=== PATIENT | female | born 1985 | race Caucasian/White ===

== ENCOUNTER 2019-07-08 01:31 | Inpatient (IN) | payer SELFPAY ==
[~2019-07-08] VITALS: Ht 149.9 cm; Wt 99.8 kg
--- NOTE | 2019-07-08 01:40 | NUR ---
TO BED 5 AMBULATORY "GENERALIZED BODY SWELLING, I HAVE HEART PROBLEMS". PT AAOX4 NO ACUTE DISTRESS NOTED, RESP EVEN AND UNLABORED. PLACE PT ON CARDIA MONTORING, CONTINUOUS POX. ER MD AT BEDSIDE TO EVAL PT WITH ORDERS RECEVED. WILL CARRY OUT ORDERS.
[2019-07-08 02:36] LABS: BASOPHILS % (AUTO) 0.2 % (0.0-2.0); EOSINOPHILS % (AUTO) 0.8 % (0.0-6.0); HEMATOCRIT 39 % (33-45); HEMOGLOBIN 13.5 g/dL (11.5-14.8); LYMPHOCYTES # (AUTO) 2.6 /CMM (0.8-4.8); LYMPHOCYTES % (AUTO) 18.8 % (20.0-44.0); MEAN CORPUSCULAR HGB CONC 34 g/dl (31.0-36.0); MEAN CORPUSCULAR VOLUME 84 fL (82-100); MONOCYTES # (AUTO) 0.9 /CMM (0.1-1.30); MONOCYTES % (AUTO) 6.3 % (2.0-12.0); NEUTROPHILS # (AUTO) 10.3 /CMM (1.8-8.9); NEUTROPHILS % (AUTO) 73.9 % (43.0-81.0); PLATELET COUNT (AUTO) 438 /CMM (150-450); RED BLOOD CELL COUNT(AUTO) 4.71 MIL/uL (4.0-5.2); WHITE BLOOD COUNT (AUTO) 13.9 K/uL (4.3-11.0)
--- NOTE | 2019-07-08 02:36 | NUR ---
Ken mares in [facility] - 07/08/19 at 0237 by LUIS BIB SELF C/O "GENERALIZED BODY SWELLING, I HAVE HEART PROBLEMS"
[2019-07-08 02:43] LABS: CALCIUM, SERUM 9.1 mg/dL (8.5-10.1); CARBON DIOXIDE 25 mmol/L (21-32); CHLORIDE 103 mmol/L (98-107); CREATININE 0.8 mg/dL (0.6-1.3); GLUCOSE 103 mg/dL (74-106); POTASSIUM 3.3 mmol/L (3.5-5.1); SODIUM SERUM 140 mmol/L (136-145); UREA NITROGEN, BLOOD 11 mg/dL (7-18)
[2019-07-08 02:57] LABS: THYROID STIMULATING HORMONE 3.063 uIU/mL (0.358-3.74)
--- NOTE | 2019-07-08 03:57 | NUR ---
PT BROTHER IS A PA. PHONE NUMBER TO TALK TO HIM IS [phone]
--- NOTE | 2019-07-08 04:55 | NUR ---
PT ASSIGNED TO ROOM 321-2
[2019-07-08] MEDS ORDERED: ONDANSETRON HCL/PF 4 MG/2 ML VIAL IVP PRN (05:30)
[2019-07-08] MEDS ORDERED: ZOLPIDEM TARTRATE 5 MG TABLET PO PRN (05:30)
[2019-07-08] MEDS ORDERED: ACETAMINOPHEN 325 MG TABLET PO PRN (05:30)
[2019-07-08] MEDS ORDERED: MAG HYDROX/AL HYDROX/SIMETH 30 ML UDC PO PRN (05:30)
[2019-07-08] MEDS ORDERED: Z GUARD REMEDY 2 OZ OINT TP PRN (05:30)
[2019-07-08] MEDS ORDERED: MAGNESIUM HYDROXIDE 30 ML UDC PO PRN (05:30)
[2019-07-08] MEDS ORDERED: HYDROCODONE/APAP 5/325MG 1 EACH TABLET PO PRN (05:30)
--- NOTE | 2019-07-08 05:40 | NUR ---
interior mechanic notes Received report from ER nurse ADAM Patel.
--- NOTE | 2019-07-08 06:15 | NUR ---
RECEIVED ORDER FOR EKG FOR 0524. PT ABSENT FROM UNIT. ATTEMPTED AGAIN AT 0615 PT STILL ABSENT FROM UNIT. WILL ENDORSE TO DAY SHIFT.
--- NOTE | 2019-07-08 06:20 | NUR ---
PT TRANSPORTED TO [facility] VIA ACLS PROTOCOL
[2019-07-08 06:24] VITALS: BP 135/92
--- NOTE | 2019-07-08 06:30 | NUR ---
ship construction teacherfront office agent notes Received Pt from ER nurse ADAM Patel . Pt arrived at the unit with a gurney thru ACLS protocol. Pt is a 34 Y O female with a diagnose of CHF by Dr. More. Pt is alert and oriented x4. Respiration is normal. NO SOB. No nausea or vomiting. Pt denies any pain or discomfort at this time. monitor and storage bin tender showed sinus tachy 111 bpm. IV sites at RAC # 18 is clean, intact, patent and SL. Initial assessment is done. All belonging was checked by EV Morris and handed to morning nurse ADAM Cristina to continue the process. ADAM Cristina will continue with the admission process. Safety precautions is maintained. Bed at low position, brakes locked, side rails upX2 and call light is within reach. Will endorse to morning nurse ADAM Cristina.
[2019-07-08 08:00] VITALS: BP 124/62
--- NOTE | 2019-07-08 08:30 | NUR ---
RN OPENING NOTES PT AWAKE AND RESTING IN BED. PER PATIENT COMPLAINING OF INCREASING LEG SWELLING. PT TELE MONITORED NSR RATE 90S. PT HAS RIGHT AC #18 INTACT AND PATENT. SAFETY PRECAUTIONS IN PLACE, BED IN LOWEST LOCKED POSITION, X2 SIDE RAILS UP AND CALL LIGHT WITHIN REACH. WILL CONTINUE TO MONITOR.
[2019-07-08] MEDS ORDERED: POTASSIUM CHLORIDE 20 MEQ TAB.PRT.SR PO SCH (09:30)
[2019-07-08 10:04] LABS: MAGNESIUM 1.9 mg/dL (1.8-2.4)
[2019-07-08 12:13] LABS: ALANINE AMINOTRANSFERASE 18 U/L (12-78); ALBUMIN 3.4 g/dL (3.4-5.0); ALKALINE PHOSPHATASE 51 U/L (46-116); ASPARTATE AMINOTRANSFERASE 12 U/L (15-37); BILIRUBIN,TOTAL 0.5 mg/dL (0.2-1.0); CALCIUM, SERUM 8.6 mg/dL (8.5-10.1); CARBON DIOXIDE 23 mmol/L (21-32); CHLORIDE 105 mmol/L (98-107); CREATININE 0.6 mg/dL (0.6-1.3); GLUCOSE 100 mg/dL (74-106); POTASSIUM 3.7 mmol/L (3.5-5.1); SODIUM SERUM 140 mmol/L (136-145); TOTAL PROTEIN, SERUM 7.1 g/dL (6.4-8.2); UREA NITROGEN, BLOOD 8 mg/dL (7-18)
[2019-07-08 15:25] LABS: THYROID STIMULATING HORMONE 1.971 uIU/mL (0.358-3.74)
[2019-07-08 15:55] LABS: APPEARANCE,URINE CLEAR (CLEAR); BILIRUBIN,URINE NEGATIVE (NEGATIVE); BLOOD, URINE TRACE Ery/uL (NEGATIVE); COLOR,URINE DARK YELLO (YELLOW); KETONES,URINE 1+ (NEGATIVE); LEUKOCYTE ESTERASE ,URINE NEGATIVE (NEGATIVE); NITRITE, URINE NEGATIVE (NEGATIVE); PROTEIN,URINE NEGATIVE (NEGATIVE); UGLUCOSE NEGATIVE (NEGATIVE); UROBILINOGEN,URINE 0.2 EU/dL (0.2)
[2019-07-08 16:00] VITALS: BP 115/75
[2019-07-08 16:09] LABS: BACTERIA,URINE Few /HPF (None Seen); SQUAMOUS EPITHELIAL CELL,UR Few /HPF (None Seen); WBC,URINE 0-2 /HPF (0-3)
--- NOTE | 2019-07-08 19:42 | NUR ---
RN CLOSING NOTES RECEIVED ORDER FROM DR BETH FALCON TO DISCHARGE PATIENT HOME. PT WILL FOLLOW UP WITH PRIMARY CARE PHYSICIAN WITHIN 1-2 WEEKS. PT WILL RETURN TO ER IF SYMPTOMS WORSEN. WILL ENDORSE TO SHOE CLERK NURSE.
--- NOTE | 2019-07-08 19:45 | NUR ---
RN NOTES RECEIVED PATIENT AWAKE ALERT ORIENTEDX4, DENIES ANY PAIN OR DISCOMFORT, PREPARING FOR DISCHARGE, IV ACCESS ON HER RIGHT AC G#18 INTACT AND PATENT, ALL NEEDS ATTENDED WILL FOLLOW UP AND SPEED UP DISCHARGING PATIENT TONIGHT PER PATIENT REQUEST.
--- NOTE | 2019-07-08 20:00 | NUR ---
RN NOTES PATIENT REQUESTING TO TALK TO CHARGE NURSE CONCERNING HER BP OF 107/43MMHG. EXPLAINED AND RE ASSURE PATIENT REGARDING HER VITAL SIGNS, RE CHECKED VITAL SIGNS FOLLOWS. BP 124/82 HR 98 RR 18 TEMP 97.7 SATING 97% ON ROOM AIR. ALL NEEDS ATTENDED. PATIENT FEELS AND STATED THAT SHE REALLY WANTS TO GO HOME TONIGHT.
[2019-07-08 20:58] VITALS: BP 107/43
--- NOTE | 2019-07-08 21:12 | NUR ---
RN NOTES INFORMED / TEXTED DR. FALCON REGARDING EXIT CARE NOTES, PER DR. FALCON SHE IS NOT ON A COMPUTER AT THIS TIME, AND PATIENT HAS NO HOME MEDS ORDER. NOTED, CHARGE NURSE AWARE. DISCHARGE INSTRUCTIONS GIVEN TO PATIENT. PATIENT IS MEDICALLY STABLE AT THIS TIME, DENIES PAIN AND DISCOMFORT, ALERT ORIENTED X4, NO SIGNS OF DISTRESS.
--- NOTE | 2019-07-08 21:20 | NUR ---
LITHOGRAPHIC ARTIST NOTES PATIENT LEFT THE UNIT AT THIS TIME, ALL NEEDS ATTENDED, DISCHARGE INSTRUCTIONS GIVEN AND VERBALIZES UNDERSTANDING, NO SIGNS OF DISTRESS, DISCONTINUED IC ACCESS, BELONGINGS ACCOUNTED AND SIGNED. CHARGE NURSE AWARE OF THE DISCHARGE.
== END 2019-07-08 21:25 | disposition home or self-care (01) | DRG 303 ==
LOC: ER 01:31 → TELE 04:56 → MED 08:59
PROVIDERS: ADMIT Internal Medicine; ATTEND Internal Medicine
DX: I87.8 Other specified disorders of veins (principal); Z68.41 Body mass index [BMI] 40.0-44.9, adult; I50.32 Chronic diastolic (congestive) heart failure; E66.01 Morbid (severe) obesity due to excess calories; F41.9 Anxiety disorder, unspecified; G47.33 Obstructive sleep apnea (adult) (pediatric); Z82.49 Family history of ischemic heart disease and other diseases of the circulatory system
CPT/HCPCS: 36415; 71045-TC; 76700-TC; 80048-TC; 80053-TC; 80061-TC; 81000-TC; 83605-TC; 83735-TC; 83880; 84439-TC; 84443-TC; 84484-TC; 84703-TC; 85025-TC; 85652-TC; 87081-TC; 93307-TC; G0378